=== PATIENT | male | born 1965 | race Caucasian/White ===

== ENCOUNTER 2017-12-06 15:22 | Emergency (ER) | payer OTHER ==
[~2017-12-06] VITALS: Ht 170.2 cm; Wt 81.7 kg
[2017-12-06] MEDS ORDERED: Voltaren100 GM TOP (17:36)
[2017-12-06] MEDS ORDERED: Percocet 5-3251 EACH PO (17:36)
[2017-12-06] MEDS ORDERED: Robaxin500 MG PO (17:36)
[2017-12-06] MEDS ORDERED: METPRE4DP PO (17:36)
== END 2017-12-06 18:55 | disposition home or self-care (01) ==
LOC: ER 15:22
DX: M54.42 Lumbago with sciatica, left side (principal); M25.552 Pain in left hip; Z79.899 Other long term (current) drug therapy; Z79.52 Long term (current) use of systemic steroids
CPT/HCPCS: 96374; 99283; J1885; J3360